=== PATIENT | male | born 1985 | race Hispanic/Latino ===

== ENCOUNTER 2022-04-08 23:22 | Emergency (ER) | payer BC ==
--- NOTE | 2022-04-08 23:51 | ER ---
Nurse's Notes [facility] Name: Cyrus Moralez Age: 36 yrs Sex: Male : 1985 Arrival Date: 04/08/2022 Time: 23:28 Bed 17 Private MD: Diagnosis: Right iritis Presentation: 04/08 23:36 Chief complaint: Patient states: Right eye pain. Reports having similar symptoms as ld1 irisitis, states he's had this every year for the past 3 years. Coronavirus screen: At this time, the client does not indicate any symptoms associated with coronavirus-19. Ebola Screen: No symptoms or risks identified at this time. Mechanism of Injury: No Mechanism of Injury. The patient reports a positive loss of vision. The patient's loss of vision began gradually 4 hours ago. Initial Sepsis Screen: Does the patient meet any 2 criteria? No. Patient's initial sepsis screen is negative. Does the patient have a suspected source of infection? No. Patient's initial sepsis screen is negative. Risk Assessment: Do you want to hurt yourself or someone else? Patient reports no desire to harm self or others. Onset of symptoms was April 08, 2022. 23:36 Method Of Arrival: Ambulatory ld1 23:36 Acuity: LUCÍA 4 ld1 Triage Assessment: 23:40 General: Appears in no apparent distress. comfortable, Behavior is calm, cooperative, ld1 appropriate for age. Pain: Complains of pain in right eye Pain does not radiate. Pain currently is 7 out of 10 on a pain scale. EENT: Eyes are tearing on right outer canthus, outer aspect of conjuctiva of right eye, iris of right eye, inner aspect of conjuctiva of right eye and right inner canthus Sclera/Cornea are reddened in right outer canthus, outer aspect of conjuctiva of right eye, iris of right eye, inner aspect of conjuctiva of right eye and right inner canthus. Neuro: Level of Consciousness is awake, alert, obeys commands, Oriented to person, place, time, situation. Cardiovascular: Capillary refill < 3 seconds Patient's skin is warm and dry. Respiratory: Airway is patent Respiratory effort is even, unlabored. Historical: - Allergies: 23:40 No Known Allergies; ld1 - Home Meds: 23:40 None [Active]; ld1 - PMHx: 23:40 None; ld1 - PSHx: 23:40 None; ld1 - Immunization history:: Adult Immunizations up to date, Client reports receiving the 2nd dose of the Covid vaccine. - Social history:: Smoking status: Patient reports the use of cigarette tobacco products, smokes one-half pack cigarettes per day, Patient uses alcohol, occasionally. Screenin/01 00:11 Abuse screen: Denies threats or abuse. Nutritional screening: No deficits noted. vc1 Tuberculosis screening: No symptoms or risk factors identified. Fall Risk None identified. Vital Signs: 04/08 23:36 BP 132 / 84; Pulse 92; Resp 18; Temp 97.8(TE); Pulse Ox 97% on R/A; Weight 117.93 kg; ld1 Height 5 ft. 10 in. (177.80 cm); Pain 7/10; 23:36 Body Mass Index 37.31 (117.93 kg, 177.80 cm) ld1 ED Course: 23:28 Patient arrived in ED. bp1 23:40 Triage completed. ld1 23:40 Arm band placed on right wrist. ld1 23:43 Olga Benítez MD is Attending Physician. sp3 23:44 Sheila Thornton RN is Primary Nurse. lg3 04/09 00:11 Patient has correct armband on for positive identification. vc1 00:11 No provider procedures requiring assistance completed. Patient did not have IV access vc1 during this emergency room visit. Administered Medications: No medications were administered Medication: 00:11 VIS not applicable for this client. vc1 Outcome: 04/08 23:50 Discharge ordered by . sp3 04/09 00:11 Discharged to home ambulatory. vc1 Condition: good Discharge instructions given to patient, Instructed on discharge instructions, follow up and referral plans. Demonstrated understanding of instructions, follow-up care, medications, Prescriptions given X 1. 00:12 Patient left the ED. vc1 Signatures: Sheila Thornton, RN RN 3 Shadia Rachel bp1 Aileen Lane RN RN ld1 Olga Benítez MD MD sp3 Lisa Gasca RN RN vc1
--- NOTE | 2022-04-08 23:51 | EDPHYS ---
Physician Documentation [facility] Name: Cyrus Moralez Age: 36 yrs Sex: Male : 1985 Arrival Date: 04/08/2022 Time: 23:28 Bed 17 Private MD: ED Physician Olga Benítez HPI: 04/08 23:46 This 36 yrs old Male presents to ER via Ambulatory with complaints of Eye sp3 Pain, Eye Problem. 23:46 36-year-old male with no past medical history presents with right eye pain and sp3 photosensitivity consistent with his prior iritis diagnoses. Patient states that he 1-2 times a year gets iritis. 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 He returns today after 2 days of symptoms and renewal of an antibiotic/steroid which is what he has used in the past. He denies headache, left eye symptoms, focal neurodeficit, weakness, confusion, paresthesia, neck pain, chest pain, shortness of breath, any other findings at this time.. Historical: - Allergies: 23:40 No Known Allergies; ld1 - Home Meds: 23:40 None [Active]; ld1 - PMHx: 23:40 None; ld1 - PSHx: 23:40 None; ld1 - Immunization history:: Adult Immunizations up to date, Client reports receiving the 2nd dose of the Covid vaccine. - Social history:: Smoking status: Patient reports the use of cigarette tobacco products, smokes one-half pack cigarettes per day, Patient uses alcohol, occasionally. ROS: 23:48 Constitutional: Negative for fever, chills, and weight loss, ENT: Negative for injury, sp3 pain, and discharge, Neck: Negative for injury, pain, and swelling, Cardiovascular: Negative for chest pain, palpitations, and edema, Respiratory: Negative for shortness of breath, cough, wheezing, and pleuritic chest pain, Abdomen/GI: Negative for abdominal pain, nausea, vomiting, diarrhea, and constipation, Back: Negative for injury and pain, MS/Extremity: Negative for injury and deformity, Skin: Negative for injury, rash, and discoloration, Neuro: Negative for headache, weakness, numbness, tingling, and seizure, Psych: Negative for depression, anxiety, suicide ideation, homicidal ideation, and hallucinations, Allergy/Immunology: Negative for hives, rash, and allergies, Endocrine: Negative for neck swelling, polydipsia, polyuria, polyphagia, and marked weight changes. 23:48 All other systems are negative. Exam: 23:48 Constitutional: This is a well developed, well nourished patient who is awake, alert, sp3 and in no acute distress. Head/Face: Normocephalic, atraumatic. ENT: Nares patent. No nasal discharge, no septal abnormalities noted. External auditory canals are clear. Oropharynx with no redness, swelling, or masses, exudates, or evidence of obstruction, uvula midline. Mucous membranes moist. Neck: Trachea midline, no thyromegaly or masses palpated, and no cervical lymphadenopathy. Supple, full range of motion without nuchal rigidity, or vertebral point tenderness. No Meningismus. Chest/axilla: Normal chest wall appearance and motion. Nontender with no deformity. No lesions are appreciated. Cardiovascular: Regular rate and rhythm with a normal S1 and S2. No gallops, murmurs, or rubs. Normal PMI, no JVD. No pulse deficits. Skin: Warm, dry with normal turgor. Normal color with no rashes, no lesions, and no evidence of cellulitis. Neuro: Awake and alert, GCS 15, oriented to person, place, time, and situation. Cranial nerves II-XII grossly intact. Motor strength 5/5 in all extremities. Sensory grossly intact. Cerebellar exam normal. Normal gait. 23:48 Eyes: Right eye injected. Bilateral pupils are equal round and reactive to light. Anterior chambers normal. Visual acuity is normal. Photosensitivity is present. No proptosis or periorbital erythema or swelling noted. There is no pain to extraocular movements.. Vital Signs: 23:36 BP 132 / 84; Pulse 92; Resp 18; Temp 97.8(TE); Pulse Ox 97% on R/A; Weight 117.93 kg; ld1 Height 5 ft. 10 in. (177.80 cm); Pain 7/10; 23:36 Body Mass Index 37.31 (117.93 kg, 177.80 cm) ld1 MDM: 23:49 Data reviewed: vital signs, nurses notes. ED course: With right eye iritis. Will treat sp3 with antibiotic and steroid combination with follow-up with his eye professional. No other medications or pathology diagnosed or indicated.. 23:50 Patient medically screened. sp3 Administered Medications: No medications were administered Disposition Summary: 04/08/22 23:50 Discharge Ordered Location: Home sp3 Condition: Stable sp3 Diagnosis - Right iritis sp3 Followup: sp3 - With: Private Physician - When: Upon discharge from the Emergency Department - Reason: Recheck today's complaints Discharge Instructions: - Discharge Summary Sheet sp3 - Uveitis sp3 Forms: - Medication Reconciliation Form sp3 - Thank You Letter sp3 - Work release form lg3 - Antibiotic Education sp3 - Prescription Opioid Use sp3 Prescriptions: - MAXITROL - apply 2 drop by OPHTHALMIC route every 6 hours for 7 days; 1 bottle; Refills: sp3 0, Product Selection Permitted Signatures: Aileen Lane RN RN ld1 Olga Benítez MD MD sp3
[2022-04-09 00:35] VITALS: BP 132/84; TEMP 97.8; O2SAT 97
== END 2022-04-09 00:12 | disposition home or self-care (01) ==
LOC: ER 23:22
DX: H20.9 Unspecified iridocyclitis (principal); F17.210 Nicotine dependence, cigarettes, uncomplicated
CPT/HCPCS: 99282